=== PATIENT | male | born 1960 | race Caucasian/White ===

== ENCOUNTER 2023-04-10 12:05 | Outpatient (CLI) | payer BC, SELFPAY ==
--- OUTSIDE RECORDS SUMMARY | 2023-04-10 12:08 | XMS_ITS | Continuity of Care Document ---
Author Name Unknown Organization [facility] Ambulatory Clinics Address [address] [place] [address] Care Team Providers Care Public Health Technologist Name Role Phone Victor M Seaman DO Primary Care Physician Encounter [facility] NBR [id number] Date(s): 11/30/22 - 11/30/22 [facility] Ambulatory Clinics [address] [place] [address]- Encounter Diagnosis Bilateral sensorineural hearing loss(Discharge Diagnosis) - 11/30/22 Discharge Disposition: Home or Self Care Attending Physician: Ashley Bermgan Allergies, Adverse Reactions, Alerts No Known Medication Allergies Assessment and Plan Future Appointments Immunizations Given and Recorded Vaccine Date Status Refusal Reason SARS-CoV-2 (COVID-19) mRNA BNT-162b2 vax 1 03/09/21 Recorded SARS-CoV-2 (COVID-19) mRNA BNT-162b2 vax 2 02/16/21 Recorded tetanus/diphth/pertuss (Tdap) adult/adol 3 09/30/20 Recorded 1Result Comment: Unit: Unknown Dynamometer Tester: [employer] 2Result Comment: Unit: Unknown Dynamometer Tester: [employer] 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 Family history of cancer of colon 1 Confirmed Active Hearing loss Confirmed Active High cholesterol Confirmed Active History of adenomatous polyp of colon Confirmed Active History of kidney stone Confirmed Active Hyperlipidemia Confirmed Active Hypertension Confirmed Active Hyperuricemia Confirmed Active Neoplasm of unspecified behavior of bone, soft tissue, and skin Confirmed Active Ear ache Confirmed Active Sciatica Confirmed Active Bilateral sensorineural hearing loss Confirmed Active Sensorineural hearing loss (SNHL), bilateral Confirmed Active Vascular disorder Confirmed Active Vascular malformation Confirmed Active 1brother Procedures Procedure Date Related Diagnosis Body Site Status Colonoscopy 1 01/02/22 Completed Biopsy of lip 2 05/2020 Completed Colonoscopy 12/16/18 Completed Ureteroscopy 3 01/03/12 Completed Colonoscopy 09/29/09 Completed Tonsillectomy 2003 Completed Hernia repair 1986 Completed 1epeat 5 years 2lip pathology: came back neg 3with stent placement Social History Social History Type Response Tobacco Never tobacco user T obacco Use:. Sex Physician Outpatient Note * Albin Graff, AuD: PERFORM Event Display: Office Clinic Note Physician Authored Date: [id number] CAMDEN KAUR :1960 Age:62 years Sex:Male Visit Date:11/30/2022 Primary Care Physician: Victor M Seaman, DO History of Present Illness Patient arrived to today's appointment by himself. ??Patient seen for annual audiogram. ??Patient has history of known normal sloping to moderately severe sensorineural hearing loss bilaterally.?? Most recent hearing evaluation 11/29/2021.?? Patient continues to report excellent benefit from hearing aids bilaterally.?? Patient reports??bilateral tonal tinnitus. ??Patient reports tinnitus is totally??gone while wearing amplification, but notices tinnitus when hearing aids are taken out. ??Patient denies any aural pressure, otalgia, or vertigo. Physical Exam Otoscopy revealed nonoccluding cerumen??bilaterally with view of tympanic membrane.?? Otherwise unremarkable. Procedure Pure-tone testing revealed a??normal sloping to moderately severe sensorineural hearing loss bilaterally.?? Speech reception clerk thresholds were found at 10 dB HL bilaterally. ??Speech discrimination scores were excellent (100%) bilaterally to presentation level of 75 dB HL with 40 dB masking the contralateral ear.?? Today's results reveal??stable pure-tone thresholds and speech discrimination ability compared to previous audiogram from 11/29/2021 Assessment/Plan 1.??Bilateral sensorineural hearing loss??H90.3 Today's results reveal stable sensorineural hearing loss bilaterally, excellent speech discrimination??bilaterally. ??Patient continues to report excellent benefit from hearing aids.?? Recommend annual hearing evaluation, or sooner should patient notice any change in??hearing, aural pressure, otalgia, tinnitus, or vertigo.?? Patient to notify department should he have any concerns with hearing aids Problem List/Past Medical History Ongoing Bilateral sensorineural hearing loss Decreased hearing of both ears Diverticulosis Ear ache Ear anomaly with hearing loss Family history of cancer of colon Hearing loss High cholesterol History of adenomatous polyp of colon History of kidney stone Hyperlipidemia Hypertension Hyperuricemia Neoplasm of unspecified behavior of bone, soft tissue, and skin Sciatica Sensorineural hearing loss (SNHL), bilateral Vascular disorder Vascular malformation Historical No qualifying data Procedure/Surgical History ???Colonoscopy (01/03/2022)???Biopsy of lip (05/2020)???Colonoscopy (12/17/2018)???Ureteroscopy (01/04/2012)???Colonoscopy (09/30/2009)???Tonsillectomy (2003)???Hernia repair (1986) Medications allopurinol 300 mg oral tablet, 300 mg= 1 tab, Oral, Daily, 3 refills simvastatin 40 mg oral tablet, 40 mg= 1 tab, Oral, every night at bedtime, 3 refills Allergies No Known Medication Allergies Social History Alcohol Electronic Cigarette/Vaping Electronic Cigarette Use: Never. Tobacco Never tobacco user Tobacco Use:. Family History Brain tumor: Brother. Cancer: Brother. Cancer of colon: Brother. Family history of cancer of testicle: Niece/Nephew. Heart disease: Father. Hypertension: Mother. Liver cancer: Brother. Myocardial infarction: Father. Family Member(s): ?? FATHER, at age: 84 Years. Cause of : Family Member(s): ?? BROTHER, at age: 53 Years. Cause of : brain cancer Immunizations Vaccine Date Status SARS-CoV-2 (COVID-19) mRNA BNT-162b2 vax 03/09/2021 Recorded Comments : Unit: Unknown Dynamometer Tester: [employer] SARS-CoV-2 (COVID-19) mRNA BNT-162b2 vax 02/16/2021 Recorded Comments : Unit: Unknown Dynamometer Tester: [employer] tetanus/diphth/pertuss (Tdap) adult/adol 09/30/2020 Recorded Comments : Dynamometer Tester: [employer] Electronically Signed on 11/30/22 08:42 AM Ashley Bergman Patient Care team information Care Team Personnel Name: Victor M Seaman DO Position: Physician Member Role: Primary Care Physician Address: Address: [address] [place] [phone] [place] Care Team Related Persons Name: NAOMY KAUR
--- OUTSIDE RECORDS SUMMARY | 2023-04-10 12:08 | XMS_ITS | Continuity of Care Document ---
Author Name Unknown Organization [facility] Ambulatory Clinics Address [address] [place] [address] Care Team Providers Care Masseur/Masseuse Name Role Phone Victor M Seaman DO Primary Care Physician [phone] Encounter [facility] NBR [id number] Date(s): 10/22/22 - 10/22/22 [facility] Ambulatory Clinics [address] [place] [address]- Discharge Disposition: Home Allergies, Adverse Reactions, Alerts No Known Medication Allergies Assessment and Plan Future Appointments Immunizations Given and Recorded Vaccine Date Status Refusal Reason SARS-CoV-2 (COVID-19) mRNA BNT-162b2 vax 1 03/09/21 Recorded SARS-CoV-2 (COVID-19) mRNA BNT-162b2 vax 2 02/16/21 Recorded tetanus/diphth/pertuss (Tdap) adult/adol 3 09/30/20 Recorded 1Result Comment: Unit: Unknown Inspector Paper Products: [email or web address] 2Result Comment: Unit: Unknown Inspector Paper Products: [email or web address] 3Result Comment: Inspector Paper Products: [employer] Medications allopurinol 300 mg oral tablet 300 mg = 1 tab, Oral, Daily, # 90 tab, 3 Refill(s), Pharmacy: [facility] Start Date: 10/17/22 Stop Date: 10/12/23 Status: Ordered simvastatin 40 mg oral tablet 40 mg = 1 tab, Oral, every day at bedtime, # 90 tab, 3 Refill(s), Pharmacy: [facility] Start Date: 09/05/22 Stop Date: 08/31/23 [...] Never tobacco user T obacco Use:. Sex Patient Care team information Care Team Personnel Name: Victor M Seaman DO Position: Physician Member Role: Primary Care Physician Address: Address: [address] [place] [phone] [place] Care Team Related Persons Name: NAOMY KAUR
--- OUTSIDE RECORDS SUMMARY | 2023-04-10 12:08 | XMS_ITS | Continuity of Care Document ---
Author Name Unknown Organization [facility] Ambulatory Clinics Address [address] [place] [address] Care Team Providers Care Parimutuel Cashier Name Role Phone Victor M Seaman DO Primary Care Physician Encounter [facility] NBR [id number] Date(s): 10/17/22 - 10/17/22 [facility] Ambulatory Clinics [address] [place] [address]- Encounter Diagnosis Hyperlipidemia(Discharge Diagnosis) - 10/17/22 Routine adult health maintenance(Discharge Diagnosis) - 10/17/22 Hyperuricemia(Discharge Diagnosis) - 10/17/22 Discharge Disposition: Home or Self Care Attending Physician: Victor M Seaman DO Allergies, Adverse Reactions, Alerts No Known Medication Allergies Assessment and Plan Future Appointments Functional Status 10/17/22 Other exposure to Infectious Disease Non e Immunizations Given and Recorded Vaccine Date Status Refusal Reason SARS-CoV-2 (COVID-19) mRNA BNT-162b2 vax 1 03/09/21 Recorded SARS-CoV-2 (COVID-19) mRNA BNT-162b2 vax 2 02/16/21 Recorded tetanus/diphth/pertuss (Tdap) adult/adol 3 09/30/20 Recorded 1Result Comment: Unit: Unknown Copy Editor: [employer] 2Result Comment: Unit: Unknown Copy Editor: [employer] 3Result Comment: Copy Editor: [employer] Medications allopurinol 300 mg oral tablet 300 mg = 1 tab, Oral, Daily, # 90 tab, 3 Refill(s), Pharmacy: [facility] Start Date: 10/17/22 Stop Date: 10/12/23 [...] pathology: came back neg 3with stent placement Vital Signs Most recent to oldest [Reference Range]: 1 Peripheral Pulse Rate [60-100 bpm] 62 bp m (10/17/22 8:06 AM) Blood Pressure [90-140/60-90 mmHg] 134/8 2mmHg (10/17/22 8:06 AM) Weight 119.5 kg (10/17/22 8:06 AM) Weight Measured (lbs) 263.452 lb (10/17/22 8:06 AM) [place] Body Weight Calculated 74.087 kg (10/17/22 8:06 AM) Height 179 cm (10/17/22 8:06 AM) Height/Length Measured (inches) 70.47 in ch (10/17/22 8:06 AM) BSA Measured 2.44 m2 (10/17/22 8:06 AM) Body Mass Index 37.3 kg/m2 (10/17/22 8:06 AM) Social History Social History Type Response Tobacco Never tobacco user T obacco Use:. Sex Hospital Discharge Instructions Follow Up Care 07/13/2022 10:38:11 With:Victor M Seaman DO Address: [address] [place] [phone] When:1 Year Physician Outpatient Note * Victor M Seaman DO: PERFORM Event Display: Office Clinic Note Physician Authored Date: [id number] CAMDEN KAUR :1960 Age:62 years Sex:Male Visit Date:10/17/2022 Primary Care Physician: Victor M Seaman DO Chief Complaint Last [place] 2021 (noted repeat in 5 yr) - Annual - pt states L wrist bothering him (?[place]) History of Present Illness Patient is a 62-year-old male who comes in today for his annual visit. ??He says he feels well.?? His only concern is his left wrist. ??Has intermittent??soreness in the wrist, especially after he has been doing a lot of work.?? 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 De nies any numbness or tingling or weakness in the hand. ??Denies any??other injury or inciting event.?? Colonoscopy is up-to-date. ??Taking his medications as prescribed.?? Seeing oncology for prostate cancer treatment. Review of Systems See HPI otherwise negative. Physical Exam Vitals & Measurements HR:??62??(Peripheral)?? BP:??134/82?? SpO2:??98%?? HT:??179??cm?? WT:??119.5??kg?? BMI:??37.3?? BSA:??2.44?? General: Alert and oriented, well nourished,?No??acute distress Lungs: Clear to auscultation and percussion,?Non-labored?? respiration Heart:?Normal? rate,?Regular??rhythm,?No??murmur,?No??gallop,?No??edema Abdomen: Soft, non-tender, non-distended,?Normal? bowel sounds,?No??masses Musculoskeletal:?Normal? range of motion and strength,?No??tenderness,?No??swelling Assessment/Plan 1.??Routine adult health maintenance??Z00.00 Healthy 62-year-old male. ??We discussed various topics around healthy lifestyle including diet andactivity.?? Left wrist pain consistent with tendinitis.?? No deformity or edema noted.?? We will continue to treat??conservatively.?? 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 ?? 2.??Hyperlipidemia??E78.5 Continue current regimen. Ordered: Comprehensive Metabolic Panel, Blood, Routine, 10/17/22, Once, Lab Collect, Hyperlipidemia Hypertension, Order for future visit Lipid Panel, Blood, Routine, 10/17/22, Once, Lab Collect, Hyperlipidemia Hypertension, Order for future visit ?? 3.??Hyperuricemia??E79.0 ?? Orders: allopurinol 300 mg oral tablet, 300 mg = 1 tab, Oral, Daily, # 90 tab, 3 Refill(s), Pharmacy: [facility] Future Orders Comprehensive Metabolic Panel, Blood, Routine, 10/17/22, Once, Lab Collect, Hyperlipidemia Hypertension, Order for future visit Lipid Panel, Blood, Routine, 10/17/22, Once, Lab Collect, Hyperlipidemia Hypertension, Order for future visit Follow Up Instructions With When Contact Information Victor M Seaman, DO Within 1 Year [address] [place] [address] Additional Instructions: Problem List/Past Medical History Ongoing Bilateral sensorineural [...] vax 03/09/2021 Recorded Comments : Unit: Unknown Copy Editor: [employer]. SARS-CoV-2 (COVID-19) mRNA BNT-162b2 vax 02/16/2021 Recorded Comments : Unit: Unknown Copy Editor: [employer]. tetanus/diphth/pertuss (Tdap) adult/adol 09/30/2020 Recorded Comments : Copy Editor: [employer] Electronically Signed on 10/17/22 08:35 AM Victor M Seaman DO Patient Care team information Care Team Personnel Name: Victor M Seaman DO Position: Physician Member Role: Primary Care Physician Address: Address: [address] [place] [phone] [place] Care Team Related Persons Name: NAOMY KAUR
--- OUTSIDE RECORDS SUMMARY | 2023-04-10 12:08 | XMS_ITS | Continuity of Care Document ---
Author Name Unknown Organization [facility] Address [address] [place] [address] Care Team Providers Care Accelerator Operator Name Role Phone Victor M Seaman DO Primary Care Physician Encounter [facility] NBR [id number] Date(s): 10/17/22 - 10/17/[address] [address]- Encounter Diagnosis Essential (primary) hypertension(Final) - Hyperlipidemia, unspecified(Final) - Discharge Disposition: Home or Self Care Attending Physician: Victor M Seaman DO Admitting Physician: Victor M Seaman DO Referring Physician: Victor M Seaman DO Allergies, Adverse Reactions, Alerts No Known Medication Allergies Assessment and Plan Future Appointments Immunizations Given and Recorded Vaccine Date Status Refusal Reason SARS-CoV-2 (COVID-19) mRNA BNT-162b2 vax 1 03/09/21 Recorded SARS-CoV-2 (COVID-19) mRNA BNT-162b2 vax 2 02/16/21 Recorded tetanus/diphth/pertuss (Tdap) adult/adol 3 09/30/20 Recorded 1Result Comment: Unit: Unknown Site Acquisition Specialist: [employer] 2Result Comment: Unit: Unknown Site Acquisition Specialist: [employer] 3Result Comment: Site Acquisition Specialist: [employer] Medications allopurinol 300 mg oral tablet 300 mg = 1 tab, Oral, Daily, # 90 tab, 3 Refill(s), Pharmacy: [facility] Start Date: 10/17/22 Stop Date: 10/12/23 [...] pathology: came back neg 3with stent placement Results Laboratory List Name Date Comprehensive Metabolic Panel (CMP) 10/17 Lipid Panel 10/17/22 Most recent to oldest [Reference Range]: 1 BUN [8-26 mg/dL] 17 mg/dL (10/17/22 8:46 AM) Cholesterol Total [129-209 mg/dL] 150 mg /dL (10/17/22 8:46 AM) LDL 81.9 *NA* (10/17/22 8:46 AM) Glucose Level [74-106 mg/dL] 100 mg/dL (10/17/22 8:46 AM) Potassium Level [3.5-5.1 mmol/L] 4.3 mmo l/L (10/17/22 8:46 AM) HDL [40-80 mg/dL] 44 mg/dL (10/17/22 8:46 AM) AST [15-41 IntlUnit/L] 29 IntlUnit/L (10/17/22 8:46 AM) ALT [17-63 IntlUnit/L] 42 IntlUnit/L (10/17/22 8:46 AM) Osmolality [275-295 mOsm/kg] 281 mOsm/kg (10/17/22 8:46 AM) Sodium Level [134-143 mmol/L] 140 mmol/L (10/17/22 8:46 AM) Chol/HDL 3.4 *NA* (10/17/22 8:46 AM) Triglycerides [10-150 mg/dL] 122 mg/dL (10/17/22 8:46 AM) Calcium Level [8.9-10.3 mg/dL] 9.4 mg/dL (10/17/22 8:46 AM) Albumin Level [3.5-5.0 g/dL] 4.1 g/dL (10/17/22 8:46 AM) Protein Total [6.5-8.1 g/dL] 7.3 g/dL (10/17/22 8:46 AM) Bilirubin Total [0.2-1.2 mg/dL] 0.9 mg/d L (10/17/22 8:46 AM) Alk Phos [38-130 IntlUnit/L] 63 IntlUnit /L (10/17/22 8:46 AM) CO2 [22-32 mmol/L] 28 mmol/L (10/17/22 8:46 AM) Chloride Level [98-111 mmol/L] 104 mmol/ L (10/17/22 8:46 AM) A/G Ratio 1.3 *NA* (10/17/22 8:46 AM) BUN/Creat Ratio [8.0-20.0] 19.8 (10/17/22 8:46 AM) Globulin 3.2 *NA* (10/17/22 8:46 AM) Creatinine Level [0.61-1.24 mg/dL] 0.86 mg/dL (10/17/22 8:46 AM) Anion Gap [3.0-12.0] 8.0 (10/17/22 8:46 AM) eGFR CKD-EPI [>=60 mL/min/1.73 m2] 99 mL /min/1.73 m2 (10/17/22 8:46 AM) Social History Social History Type Response Tobacco Never tobacco user T obacco Use:. Sex Patient Care team information Care Team Personnel Name: Victor M Seaman DO Position: Physician Member Role: Primary Care Physician Address: Address: [address] [place] [phone] [place] Care Team Related Persons Name: NAOMY KAUR
--- OUTSIDE RECORDS SUMMARY | 2023-04-10 12:08 | XMS_ITS | Continuity of Care Document ---
Author Name Unknown Organization [facility] Ambulatory Clinics Address [address] [place] [address] Care Team Providers Care Etiquette Coach Name Role Phone Victor M Seaman DO Primary Care Physician Encounter [facility] NBR [id number] Date(s): 03/23/22 - 03/23/[address] [facility] Ambulatory Clinics [address] [place] [address] Discharge Disposition: Home or Self Care Attending Physician: Ashley Bergman Allergies, Adverse Reactions, Alerts No Known Medication Allergies Assessment and Plan Future Appointments Medications allopurinol 300 mg oral tablet 90 tab, 0 Refill(s) Start Date: 02/22/22 Status: Ordered simvastatin 40 mg oral tablet 1 Unknown, 0 Refill(s) Start Date: 02/22/22 Status: Ordered Problem List Condition Confirmation Course Effective Dates Status H ealth Status Informant Diverticulosis Confirmed Active Hearing loss Confirmed Active History of adenomatous polyp of colon Confirmed Active Hyperlipidemia Confirmed Active Hyperuricemia Confirmed Active Neoplastic disease Confirmed Active Bilateral sensorineural hearing loss Confirmed Active Vascular disorder Confirmed Active Procedures Procedure Date Related Diagnosis Body Site Status Colonoscopy 12/16/18 Completed Ureteroscopy 1 01/03/12 Completed Colonoscopy 09/29/09 Completed Tonsillectomy 2003 Completed Hernia repair 1986 Completed 1with stent placement Social History Social History Type Response Tobacco Never tobacco user T obacco Use:. Sex Patient Care team information Personnel Name: Victor M Seaman DO Address: Address: [address] [place] [phone]
--- OUTSIDE RECORDS SUMMARY | 2023-04-10 12:08 | XMS_ITS | Continuity of Care Document ---
Author Name Unknown Organization [facility] Ambulatory Clinics Address [address] [place] [address] Care Team Providers Care In Process Inspector Name Role Phone Victor M Seaman DO Primary Care Physician Encounter [facility] NBR [id number] Date(s): 02/24/22 - 02/24/22 [facility] Ambulatory Clinics [address] [place], [place] [address] Encounter Diagnosis Elevated PSA(Discharge Diagnosis) - 02/24/22 Discharge Disposition: Home or Self Care Attending Physician: Erika Goldman MD Allergies, Adverse Reactions, Alerts No Known Medication Allergies Assessment and Plan Future Appointments Functional Status 02/24/22 Living Environment Home Environment No qualifying data available Recent Travel History No recent travel Other exposure to Infectious Disease Non e Medications allopurinol 300 mg oral tablet 90 tab, 0 Refill(s) Start Date: 02/22/22 Status: Ordered simvastatin 40 mg oral tablet 1 Unknown, 0 Refill(s) Start Date: 02/22/22 Status: Ordered Problem List Condition Confirmation Course Effective Dates Status H ealt Status Informant Diverticulosis Confirmed Active Hearing loss Confirmed Active History of adenomatous polyp of colon Confirmed Active Hyperlipidemia Confirmed Active Hyperuricemia Confirmed Active Neoplastic disease Confirmed Active Vascular disorder Confirmed Active Procedures Procedure Date Related Diagnosis Body Site Status Colonoscopy 12/16/18 Completed Ureteroscopy 1 01/03/12 Completed Colonoscopy 09/29/09 Completed Tonsillectomy 2003 Completed Hernia repair 1986 Completed 1with stent placement Results Laboratory List Name Date .Urinalysis POCT 02/24/22 Most recent to oldest [Reference Range]: 1 Method of Collect POC Clean Catch *NA* (02/24/22 10:08 AM) Specific [place], Ur POC 1.025 *NA* (02/24/22 10:08 AM) Specimen Color POC [Yellow] Yellow (02/24/22 10:08 AM) Glucose, Urine POC Negative mg/dL *NA* (02/24/22 10:08 AM) Bilirubin, Urine POC [Negative] Negative (02/24/22 10:08 AM) Ketones, Urine POC [Negative mg/dL] Nega tive mg/dL (02/24/22 10:08 AM) Blood, Urine POC [Negative] Negative (02/24/22 10:08 AM) pH, Urine POC 7.0 *NA* (02/24/22 10:08 AM) Protein, Urine POC [Negative mg/dL] Nega tive mg/dL (02/24/22 10:08 AM) Urobilinogen, Urine POC [0.2] 1.0 *ABN* (02/24/22 10:08 AM) Nitrite, Urine POC [Negative] Negative (02/24/22 10:08 AM) Leuk Esterase, Urine POC [Negative] Nega tive (02/24/22 10:08 AM) Clarity, Urine POC [Clear] Clear (02/24/22 10:08 AM) Vital Signs Most recent to oldest [Reference Range]: 1 Peripheral Pulse Rate [60-100 bpm] 74 bp m (02/24/22 9:04 AM) Blood Pressure [90-140/60-90 mmHg] 128/7 4mmHg (02/24/22 9:04 AM) Weight 113.40 kg (02/24/22 9:04 AM) Weight Measured (lbs) 250.004 lb (02/24/22 9:04 AM) [place] Body Weight Calculated 73 kg (02/24/22 9:04 AM) Height 177.8 cm (02/24/22 9:04 AM) Height/Length Measured (inches) 70 inch (02/24/22 9:04 AM) BSA Measured 2.37 m2 (02/24/22 9:04 AM) Body Mass Index 35.87 kg/m2 (02/24/22 9:04 AM) Social History Social History Type Response Tobacco Never tobacco user T obacco Use:. Sex Patient Care team information Personnel Name: Victor M Seaman DO Address: Address: [address] [place] [phone]
[2023-04-11 17:46] LABS: PSA, Ultrasensitive 0.19 ng/mL (<= 4.5)
[2023-04-14 12:25] LABS: Testosterone, Total 18 ng/dL (240-950)
== END 2023-04-10 12:06 | disposition home or self-care (01) ==
LOC: LBO 12:06
PROVIDERS: PCP Family Medicine; Visit Provider Radiology Radiation Oncology
DX: C61 Malignant neoplasm of prostate (principal)
CPT/HCPCS: 36415; 84153; 84403

== ENCOUNTER 2023-10-04 01:52 | Outpatient (CLI) | payer BC, SELFPAY ==
[2023-10-05 17:11] LABS: PSA, Ultrasensitive 0.32 ng/mL (<= 4.5)
[2023-10-07 11:53] LABS: Testosterone, Total 255 ng/dL (240-950)
== END 2023-10-04 01:53 | disposition home or self-care (01) ==
LOC: LBO 01:52
PROVIDERS: PCP Family Medicine; Visit Provider Radiology Radiation Oncology
DX: C61 Malignant neoplasm of prostate (principal)
CPT/HCPCS: 36415; 84153; 84403